=== PATIENT | female | born 1975 | race Caucasian/White ===

== ENCOUNTER 2016-11-10 06:01 | Day surgery (SDC) | payer OTHER ==
[~2016-11-10] VITALS: Ht 154.9 cm; Wt 70.3 kg
[2016-11-10] MEDS ORDERED: vitamins (07:19)
[2016-11-10 07:20] VITALS: Ht 154.9 cm; Wt 70.3 kg
[2016-11-10 07:42] VITALS: BP 117/67; PULSE 59; RESP 19
[2016-11-10] MEDS ORDERED: MIDAZOLAM 1 MG/ML 2 ML INJ ONE ×2 (08:27→08:28)
[2016-11-10] MEDS ORDERED: FENTAnyl 50 MCG/ML VIAL ONE (08:28)
[2016-11-10 09:07] VITALS: BP 118/85; RESP 12
--- NOTE | 2016-11-10 11:20 | GILP ---
DATE OF PROCEDURE: 11/10/2016 NAME OF PROCEDURES: 1. Esophagogastroduodenoscopy and biopsy. 2. Colonoscopy. SURGEON: Natasha Parmar MD PREOPERATIVE DIAGNOSES: 1. Abdominal pain. 2. Rectal bleeding. POSTOPERATIVE DIAGNOSES: 1. Hiatal hernia. 2. Gastroesophageal reflux disease. 3. Gastritis with erosions. 4. Gastric mucosal biopsies were taken for Helicobacter pylori test. 5. Colonoscopy all the way to the cecum. 6. Internal hemorrhoids. 7. No colitis or neoplasm was identified. INDICATION FOR THE PROCEDURE: Ms. Adams Gonzalez is a 41-year-old female patient who had upper abdo demi pain, not responding to therapy. The patient also had rectal bleeding. The patient was sched uled for endoscopy and colonoscopy for further evaluation. The procedures and possible complications were well explained to the patient, she understood and con sented to the procedures. DESCRIPTION OF PROCEDURE: Under the influence of fentanyl and Versed, the gastroscope was carefully introduced into the esophagus and under direct vision, it was advanced to the stomach and through t he pylorus into the duodenal bulb and descending duodenum. FINDINGS: ESOPHAGUS: The patient had hiatal hernia and gastroesophageal reflux disease. STOMACH: She had gastritis with erosions. Gastric mucosal biopsies were taken for H. pylori test. DUODENUM: Normal. The colonoscope was carefully introduced in the rectum and under direct vision, it was advanced all the way to the cecum. FINDINGS: The patient had internal hemorrhoids. No colitis or neoplasm was identified. She tolerated the procedures very well and there was no complication from the procedures. At the en d of the procedures, she was awake with stable vital signs and she was discharged home to the care o f her family. IMPRESSION: Please see postoperative diagnoses. PLAN: 1. Omeprazole 40 mg p.o. q.a.m. 2. Anusol-HC 2.5% cream b.i.d. 3. Await H. pylori test report. Dictated By: NATASHA ALEJO/TYRONE Conf#: [id number] DID#: [id number]
== END 2016-11-10 11:35 | disposition home or self-care (01) ==
LOC: GIL 06:01
PROVIDERS: ATTEND Internal Medicine Gastroenterology
DX: K44.9 Diaphragmatic hernia without obstruction or gangrene (principal); K21.9 Gastro-esophageal reflux disease without esophagitis; K64.8 Other hemorrhoids; K29.60 Other gastritis without bleeding
CPT/HCPCS: 43239; 45378; 84703; 87081; J2250; J3010; Z7610